=== PATIENT | male | born 1985 | race Two or more races ===

== ENCOUNTER 2019-06-19 10:28 | Emergency (ER) | payer MEDICAID ==
[~2019-06-19] VITALS: Ht 177.8 cm; Wt 80.7 kg
[2019-06-19 10:39] VITALS: BP 145/83
--- NOTE | 2019-06-19 11:03 | NUR ---
ED Nurse Note: Pt. AAOx4. Ambulatory. walked in to ER due to pain on left eye after being hit to face with a soccer ball. denies visual distrubance. states hit on sat. no dizziness or n/v. redness noted to sclera
--- NOTE | 2019-06-19 11:37 | Emergency Room Report ---
History of Present Illness General Chief Complaint: Eye Problems Source: Patient Present Illness HPI Disclaimer: Please note that this report is being documented using [employer] technology. This can lead to erroneous entry secondary to incorrect interpretation by the dictating instrument. HPI: 34-year-old male presents for evaluation of right eye pain and redness. He was playing soccer 2 days ago when he was struck in the right eye by the ball knocking him to the ground. He was sustained a left hand fracture and presents with a splint applied. He states that he has a foreign body sensation in his eye, pain with blinking. Denies any lacrimation or purulent discharge. Denies any periorbital swelling. Denies double vision or blurred vision. Does not wear contact lenses. Noticed a red spot over the right lateral portion of the eye and came in for evaluation. Denies fevers, chills, headaches, neck pain , jaw pain, facial tenderness. PMH: Denies PSH: Denies Allergies: Denies Social Hx: Denies drug, alcohol or tobacco use Allergies: Coded Allergies: No Known Allergies (Unverified , 06/19/19) Nursing Documentation-PMH Past Medical History: No Stated History Review of Systems All Other Systems: negative except mentioned in HPI Physical Exam Vital Signs Date Time Temp Pulse Resp B/P (MAP) Pulse Ox O2 Delivery O2 Flow Rate FiO2 06/19/19 10:39 97.9 70 18 145/83 (103) 99 Room Air General: Awake and alert, no acute distress HEENT: NC/AT. EOMI. PERRLA. There is a small, less than 15%, sub-conjunctiva hemorrhage at the 7 o'clock position in the right eye. Does not cross the limbus. Visual acuity: OS 20/30, OD 20/30, OU 20/30. Fluorescein exam shows no corneal abrasion, mild uptake over the sclera at the 9 o'clock position, no cell or flare appearance, negative for Aidan sign, no dendrites appreciated. No drainage. Cardiovascular: RRR. S1 and S2 normal. No murmur appreciated Resp: Normal work of breathing. No cough, wheezing or crackles appreciated Skin: Intact. No abrasions, laceration or rash over the exposed skin MSK: Normal tone and bulk. Moving all extremities. Left forearm is in a short arm splint and thumb spica. Neuro: Awake and alert. Mentating appropriately. Medical Decision Making Diagnostic Impression: Primary Impression: Abrasion of sclera of right eye ER Course This is a 34-year-old male presenting for evaluation of right eye irritation and sub-conjunctiva hemorrhage after he was struck in the face by a soccer ball 2 days ago. His visual acuity is preserved, no evidence of infection. He does have a scleral abrasion at the 7 o'clock position, does not wear contact lenses and at this time does not appear to require antibiotics. There is no evidence of corneal abrasion, haziness of the cornea, dendrites, Aidan sign or other signs of major trauma. Patient will be discharged home symptomatic care and follow-up with his primary care doctor as needed or with 1 of the clinics listed in his discharge paperwork. Patient understands and agrees with this treatment plan will be discharged home. Last Vital Signs Date Time Temp Pulse Resp B/P (MAP) Pulse Ox O2 Delivery O2 Flow Rate FiO2 06/19/19 10:39 97.9 70 18 145/83 99 Room Air Disposition: HOME, SELF-CARE Condition: Stable Scripts No Active Prescriptions or Reported Meds Referrals: [facility],REFERRING (PCP) Flavio Mtz MD Jun 19, 2019 11:37
[2019-06-19] MEDS ORDERED: Tetracaine 0.5% Opth 4ml Soln ONE (11:39)
[2019-06-19] MEDS ORDERED: Fluorescein Strips RIGHT EYE ONE (11:45)
[2019-06-19 12:10] VITALS: BP 145/83
--- NOTE | 2019-06-19 12:12 | NUR ---
ER DISCHARGE NOTE: Patient is cleared to be discharged per ERMD DR DAVIES, pt is aox4, on room air, with stable vital signs. pt was given dc and prescription instructions, pt was able to verbalize understanding, pt id band removed without complications. pt is able to ambulate with steady gait. pt took all belongings.
[2019-06-19] MEDS ORDERED: Tetracaine 0.5% Opth 4ml Soln RIGHT EYE ONE (12:15)
[2019-06-19] MEDS ORDERED: Tetrahydrozoline 0.05% Opth 15ml BOTH EYES SCH (13:00)
== END 2019-06-19 12:10 | disposition home or self-care (01) ==
LOC: EMR 11:18
DX: S05.01XA Injury of conjunctiva and corneal abrasion without foreign body, right eye, initial encounter (principal); W21.02XA Struck by soccer ball, initial encounter; Y93.66 Activity, soccer; Y92.9 Unspecified place or not applicable
CPT/HCPCS: 99282